=== PATIENT | female | born 1940 | race Caucasian/White ===

== ENCOUNTER 2016-12-05 11:50 | Outpatient (CLI) ==
[2016-09-10 17:51] VITALS: BMI 34.1
[2016-12-05] MEDS ORDERED: PROCRIT SUBCUT STA (12:29)
[2016-12-05 12:42] VITALS: BP 122/40; TEMP 98.1
[2016-12-05 12:50] LABS: BASOPHILS % (AUTO) 0.9 % (0.0-3.0); EOSINOPHILS # (AUTO) 0.2 K/ul (0.0-0.7); EOSINOPHILS % (AUTO) 3.7 % (0.0-7.0); IMMATURE GRANULOCYTE % (AUTO) 0.2 % (0.0-5.0); LYMPHOCYTES # (AUTO) 0.6 K/uL (0.60-3.4); LYMPHOCYTES % (AUTO) 12.9 (10.0-50.0); MEAN CORPUSCULAR HEMOGLOBIN 26.2 pg (27.0-31.0); MEAN CORPUSCULAR VOLUME 93.6 fl (81.0-99.0); MONOCYTES # (AUTO) 0.4 K/uL (0.4-2.0); MONOCYTES % (AUTO) 8.6 (0-10); NEUTROPHILS # (AUTO) 3.2 K/ul (2.0-6.9); NEUTROPHILS % (AUTO) 73.7; PLATELET COUNT 290 10^3/uL (140-440); RED BLOOD COUNT 2.02 10^6/ul (4.20-5.40); WHITE BLOOD COUNT 4.28 K/ul (4.6-10.2)
[2016-12-05 13:18] LABS: HEMATOCRIT 18.9 % (37.0-47.0); HEMOGLOBIN 5.2 g/dl (12.0-16.0)
== END 2016-12-05 11:51 | disposition home or self-care (01) ==
LOC: LAB 11:50 → OPMED 11:51
PROVIDERS: ATTEND Internal Medicine Hematology & Oncology
DX: N18.3 Chronic kidney disease, stage 3 (moderate) (principal); D63.1 Anemia in chronic kidney disease
CPT/HCPCS: 36415; 85025; 96372

== ENCOUNTER 2016-12-12 10:17 | Outpatient (CLI) ==
[2013-05-06 16:59] VITALS: TEMP 97.8
[2016-09-10 17:51] VITALS: BMI 34.1
[2016-12-12 10:36] LABS: BASOPHILS % (AUTO) 0.8 % (0.0-3.0); EOSINOPHILS # (AUTO) 0.2 K/ul (0.0-0.7); EOSINOPHILS % (AUTO) 4.2 % (0.0-7.0); HEMATOCRIT 21.4 % (37.0-47.0); IMMATURE GRANULOCYTE % (AUTO) 0.4 % (0.0-5.0); LYMPHOCYTES # (AUTO) 0.6 K/uL (0.60-3.4); LYMPHOCYTES % (AUTO) 13.2 (10.0-50.0); MEAN CORPUSCULAR HEMOGLOBIN 26.2 pg (27.0-31.0); MEAN CORPUSCULAR VOLUME 93.4 fl (81.0-99.0); MONOCYTES # (AUTO) 0.4 K/uL (0.4-2.0); MONOCYTES % (AUTO) 8.4 (0-10); NEUTROPHILS # (AUTO) 3.5 K/ul (2.0-6.9); PLATELET COUNT 232 10^3/uL (140-440); RED BLOOD COUNT 2.29 10^6/ul (4.20-5.40); WHITE BLOOD COUNT 4.76 K/ul (4.6-10.2)
[2016-12-12] MEDS ORDERED: PROCRIT SUBCUT STA (10:37)
== END 2016-12-12 10:18 | disposition home or self-care (01) ==
LOC: OUTPT 10:17
PROVIDERS: ATTEND Internal Medicine Hematology & Oncology
DX: N18.3 Chronic kidney disease, stage 3 (moderate) (principal); D63.1 Anemia in chronic kidney disease
CPT/HCPCS: 36415; 85025; 96372

== ENCOUNTER 2016-12-19 10:20 | Emergency (ER) ==
[2016-12-19 10:20] VITALS: BMI 34.1
[2016-12-19 10:27] VITALS: BP 175/91; TEMP 96.4
[2016-12-19 10:54] LABS: BASOPHILS % (AUTO) 0.7 % (0.0-3.0); EOSINOPHILS # (AUTO) 0.1 K/ul (0.0-0.7); EOSINOPHILS % (AUTO) 3.1 % (0.0-7.0); HEMATOCRIT 25.4 % (37.0-47.0); HEMOGLOBIN 7.3 g/dl (12.0-16.0); IMMATURE GRANULOCYTE % (AUTO) 0.4 % (0.0-5.0); LYMPHOCYTES # (AUTO) 0.5 K/uL (0.60-3.4); LYMPHOCYTES % (AUTO) 10.7 (10.0-50.0); MEAN CORPUSCULAR HEMOGLOBIN 25.3 pg (27.0-31.0); MEAN CORPUSCULAR HGB CONC 28.7 (31.8-35.4); MEAN CORPUSCULAR VOLUME 88.2 fl (81.0-99.0); MONOCYTES # (AUTO) 0.4 K/uL (0.4-2.0); MONOCYTES % (AUTO) 8.1 (0-10); NEUTROPHILS # (AUTO) 3.5 K/ul (2.0-6.9); PLATELET COUNT 247 10^3/uL (140-440); RED BLOOD COUNT 2.88 10^6/ul (4.20-5.40); WHITE BLOOD COUNT 4.59 K/ul (4.6-10.2)
[2016-12-19 11:04] LABS: OCCULT BLOOD INTERNAL QC 1 INTERNAL QC VALID; OCCULT BLOOD SAMPLE 1 NEGATIVE (NEGATIVE)
[2016-12-19 11:05] LABS: PARTIAL THROMBOPLASTIN TIME 21.7 SEC (23.9-40.0); PROTHROMBIN TIME 12.4 SEC (9.3-11.0)
[2016-12-19 11:08] LABS: ANISOCYTOSIS NOT PRESENT (NOT PRESENT); HYPOCHROMASIA 1+ (NOT PRESENT)
[2016-12-19 11:16] LABS: ALBUMIN 3.4 g/dL (3.4-5.0); ALBUMIN/GLOBULIN RATIO 1.17; ANION GAP 13.8; BILIRUBIN,TOTAL 0.43 mg/dL (0.00-1.20); BUN/CREATININE RATIO 20.56; CALCIUM 8.9 mg/dL (8.2-10.2); CREATININE 1.41 mg/dL (0.60-1.30); POTASSIUM 4.8 mmol/L (3.5-5.10); TOTAL PROTEIN 6.3 g/dL (5.8-8.1); TROPONIN I 0.029 ng/ml (0.0000-0.4000)
--- NOTE | 2016-12-19 12:47 | CT ---
EXAM: CT abdomen pelvis without contrast HISTORY: Abdominal pain and vaginal bleeding with bloating. Patient with history of partial hyster ectomy and prior cholecystectomy. COMPARISON: CT abdomen pelvis 09/14/2016 and 07/23/2013. Chest x-ray 11/30/2014. TECHNIQUE: Serial axial images of the abdomen pelvis were performed from the lung bases through the inferior pelvis without contrast. These were viewed in multiple planes. FINDINGS: Small pleural effusions are present with minimal atelectasis. The liver is unremarkable in appearance. The gallbladder has been resected. The adrenal glands are normal. The kidneys are normal. There is no hydronephrosis or visualized stone. The spleen is un remarkable. The pancreas is unremarkable. The stomach is normal. Small bowel in the abdomen and pelvis is normal in appearance. The colon is nondistended with mild diverticulosis of the sigmoid colon. The appendix is normal without evidence of inflammation or inf ection. The urinary bladder is distended. Changes consistent with hysterectomy are present. There is no free air, free fluid or lymphadenopathy noted in the abdomen or pelvis. The osseous structur es demonstrate chronic healed anterior right rib fractures. The lumbar spine unchanged with signifi cant degenerative lumbosacral junction and 0.7 cm of anterolisthesis of L4 on L5 which is unchanged by measurements on prior exam. The broad-based disc bulge contributing to bilateral moderate to sev ere interval narrowing at this level is also stable. There is fusion of T11 and T10 vertebral rich s. IMPRESSION: 1. Acute intra-abdominal or pelvic process for patient's symptoms. 2. Small bilateral pleural effusions are present with atelectasis. 3. Diverticulosis without diverticulitis. 4. Stable multilevel degenerative disease with stable anterolisthesis of L4 on L5.
--- NOTE | 2016-12-19 13:51 | ED.PDOC ---
General ED Provider: Dr. MANDI HARDY Chief Complaint: Vaginal Bleeding Stated Complaint: vaginal bleeding Time Seen by Physician: 10:30 Mode of Arrival: Wheelchair Information Source: Patient Exam Limitations: No limitations Primary Care Provider: JOYCE MAYO Nursing and Triage Documentation Reviewed and Agree: Yes Complaint Exam - Complaint/Exam Onset/Duration: this morning noticed some blood in bathroom no bowel issues offered Symptoms Are: Resolved Timing: Intermittent Initial Severity: Mild Current Severity: None Location of Pain: Reports: Suprapubic Character: Reports: Dull Aggravating: Reports: Urination Alleviating: Reports: None Associated Signs and Symptoms: Reports: Increased urine frequency, Vaginal bleeding Related History: Reports: Similar episode Ectopic Risk Factors: Reports: None Ovarian Torsion Risk Factors: Reports: None Surgical Obstruction Risk Factors: Reports: None RH Status: Unknown Related Surgical History: Reports: None Abdominal Findings: Present: None Review of Systems - Review Of Systems Constitutional: Reports: Weakness Eyes: Reports: No symptoms Ears, Nose, Mouth, Throat: Reports: No symptoms Respiratory: Reports: No symptoms Cardiac: Reports: No symptoms GI: Reports: No symptoms : Reports: No symptoms Musculoskeletal: Reports: No symptoms Skin: Reports: No symptoms Neurological: Reports: No symptoms Endocrine: Reports: No symptoms Hematologic/Lymphatic: Reports: No symptoms All Other Systems: Reviewed and Negative Past Medical History - Past Medical History Endocrine: Reports: DM 1, Hypothyroid, Dyslipidemia Cardiovascular: Reports: Hypertension, CHF Respiratory: Reports: None Hematological: Reports: Anemia (chronic ) Gastrointestinal: Reports: GERD Genitourinary: Reports: CKD Neuro/Psych: Reports: TIA, Depression Musculoskeletal: Reports: Arthritis Cancer: Reports: None Last Menstrual Period: NONE Other Pertinent Past Medical History: firbromyalgiA - Surgical History General Surgical History: Reports: Hysterectomy (PARTIAL), Cholecystectomy, Orthopedic (BILAT KNEE REPLACEMENT, CARPAL TUNNEL, ), Other (CATARACT,) - Family History Family History: Reports: Unknown - Social History Smoking Status: Former smoker Hx Substance Use: No Alcohol Screening: None Physical Exam - Physical Exam Appearance: Well-appearing, No pain distress, Well-nourished Eyes: EMILY, EOMI, Conjunctiva clear ENT: Ears normal, Nose normal, Oropharynx normal Respiratory: Airway patent, Breath sounds clear, Breath sounds equal, Respirations nonlabored Cardiovascular: RRR, Pulses normal, No rub, No murmur GI/: Soft, Nontender, No masses (with lilly in the room pelvic exam was negative for any blood also rectal exam with nurse at [facility] was negative ), Bowel sounds normal, No Organomegaly Musculoskeletal: Normal strength, ROM intact, No edema, No calf tenderness Skin: Warm, Dry, Normal color Neurological: Sensation intact, Motor intact, Reflexes intact, Cranial nerves intact, Alert, Oriented Psychiatric: Affect appropriate, Mood appropriate Physician Notification - Case Discussed Physician Notified: pmd Time of Notification: 13:54 (labs entirely discussed PMD would like pt to see her oncologist for follow up) Critical Care Note - Critical Care Note Total Time (mins): 0 Course - Course Hematology/Chemistry: 12/19/16 10:40 12/19/16 10:40 Orders, Labs, Meds: Lab Review 12/19/16 10:40 WBC 4.59 L RBC 2.88 L Hgb 7.3 L Hct 25.4 L MCV 88.2 MCH 25.3 L MCHC 28.7 L RDW Coeff of Irvin 18.6 H Plt Count 247 Immature Gran % (Auto) 0.4 Neut % (Auto) 77.0 Lymph % (Auto) 10.7 [place] % (Auto) 8.1 Eos % (Auto) 3.1 Baso % (Auto) 0.7 Immature Gran # (Auto) 0.0 Neut # 3.5 Lymph # 0.5 L [place] # 0.4 Eos # 0.1 Baso # 0.0 PT 12.4 H INR 1.20 APTT 21.7 L Sodium 142 Potassium 4.8 Chloride 105 Carbon Dioxide 28 Anion Gap 13.8 BUN 29 H Creatinine 1.41 H Estimated GFR (MDRD) 36.00 BUN/Creatinine Ratio 20.56 Glucose 191 H Calcium 8.9 Total Bilirubin 0.43 AST 29 ALT 19 Alkaline Phosphatase 48 L Total Creatine Kinase 70 Troponin I 0.0290 Total Protein 6.3 Albumin 3.4 Globulin 2.9 Albumin/Globulin Ratio 1.17 Stl Occult Blood (IFOB) Negative Stool Occult Blood #2 Pending Stool Occult Blood #3 Pending Orders Category Date Time Status EKG-(ED ONLY) Stat CARDIO 12/19/16 10:35 Completed CBC W/ AUTO DIFF Stat LAB 12/19/16 10:40 Completed COMPREHENSIVE METABOLIC PANEL Stat LAB 12/19/16 10:40 Completed CREATINE KINASE Stat LAB 12/19/16 10:40 Completed OCCULT BLOOD, STOOL Stat LAB 12/19/16 10:40 Results PARTIAL THROMBOPLASTIN TIME Stat LAB 12/19/16 10:40 Completed PT WITH INR Stat LAB 12/19/16 10:40 Completed RBC MORPHOLOGY Stat LAB 12/19/16 10:40 Completed TROPONIN I Stat LAB 12/19/16 10:[address] ABDOMEN/PELVIS WO CONTRAST Stat RADS 12/19/16 12:05 Completed Vital Signs: Temp Pulse Resp BP Pulse Ox 12/19/16 10:21 96.4 F L 83 20 175/91 H 90 L Departure - Departure Time of Disposition: 13:54 Disposition: HOME SELF-CARE Discharge Problem: Anemia Qualifiers: Iron deficiency anemia type: unspecified iron deficiency Instructions: Anemia (ED) Condition: Good Pt referred to PMD for follow-up: No Additional Instructions: Please call your Family Physician as soon as possible to schedule a follow-up appointment. Allergies/Adverse Reactions: Allergies Sulfa (Sulfonamide Antibiotics) Adverse Reaction (Intermediate, Verified 10:27) Vomiting Home Medications: Ambulatory Orders Aspirin [Aspirin Chewable] 81 mg PO DAILY 05/06/13 Clotrimazole/Betamethasone Dip [Lotrisone 15 gm] 1 applic TP DAILY 05/06/13 Fexofenadine HCl [Cindy] 180 mg PO BID 05/06/13 Hydrocortisone 28.35 gm TP 1-2XD 05/06/13 Levothyroxine Sodium [Synthroid] 0.1 mg PO DAILY 05/06/13 Tramadol HCl [Ultram] 50 mg PO QID 05/06/13 Zolpidem Tartrate [Ambien] 5 mg PO BEDTIME 05/06/13 Tizanidine HCl [Zanaflex] 4 mg PO BID 08/27/13 Omeprazole [Prilosec] 20 mg PO BID 10/16/13 Bupropion HCl [Wellbutrin Xl] 150 mg PO DAILY 08/22/14 Lisinopril 20 mg PO DAILY 08/22/14 NPH, Human Insulin Isophane [Novolin N Insulin] 27 unit SUBCUT BID 06/20/16 Amlodipine Besylate [Norvasc] 5 mg PO BID 09/11/16 Cephalexin [Keflex] 500 mg PO QID 09/11/16 Fenofibrate Nanocrystallized [Fenofibrate] 145 mg PO DAILY 09/11/16 Furosemide [Lasix] 40 mg PO DAILY 09/11/16 Multivit-Min/FA/Lycopene/Lut [Centrum Silver Tablet] 1 each PO DAILY 09/11/16 Pravastatin Sodium [Pravachol] 40 mg PO BEDTIME 09/11/16 Disposition Discussed With: Patient
[2016-12-19 16:21] LABS: OCCULT BLOOD INTERNAL QC 2 INTERNAL QC VALID; OCCULT BLOOD INTERNAL QC 3 INTERNAL QC VALID; OCCULT BLOOD SAMPLE 2 NO SPECIMEN RECEIVED (NEGATIVE); OCCULT BLOOD SAMPLE 3 NO SPECIMEN RECEIVED (NEGATIVE)
== END 2016-12-19 14:00 | disposition home or self-care (01) ==
LOC: ED 10:20
DX: D50.9 Iron deficiency anemia, unspecified (principal); R35.0 Frequency of micturition; E10.9 Type 1 diabetes mellitus without complications; E03.9 Hypothyroidism, unspecified; E78.5 Hyperlipidemia, unspecified; I10 Essential (primary) hypertension; N18.9 Chronic kidney disease, unspecified; K21.9 Gastro-esophageal reflux disease without esophagitis; M79.7 Fibromyalgia; Z86.73 Personal history of transient ischemic attack (TIA), and cerebral infarction without residual deficits; Z79.899 Other long term (current) drug therapy
CPT/HCPCS: 36415; 80053; 82272; 82550; 84484; 85008; 85025; 85610; 85730; 93005; 93010; 99283

== ENCOUNTER 2016-12-20 10:08 | Outpatient (CLI) ==
[2016-09-10 17:51] VITALS: BMI 34.1
[2016-12-20 10:43] VITALS: BP 124/76; TEMP 97.8
[2016-12-20] MEDS ORDERED: PROCRIT SUBCUT STA (10:44)
== END 2016-12-20 10:09 | disposition home or self-care (01) ==
LOC: OPMED 10:08
PROVIDERS: ATTEND Internal Medicine Hematology & Oncology
DX: N18.3 Chronic kidney disease, stage 3 (moderate) (principal); D63.1 Anemia in chronic kidney disease
CPT/HCPCS: J0885; 96372

== ENCOUNTER 2016-12-29 10:51 | Outpatient (CLI) ==
[2016-12-29 11:16] LABS: BASOPHILS % (AUTO) 0.7 % (0.0-3.0); EOSINOPHILS # (AUTO) 0.1 K/ul (0.0-0.7); EOSINOPHILS % (AUTO) 1.3 % (0.0-7.0); IMMATURE GRANULOCYTE % (AUTO) 0.5 % (0.0-5.0); LYMPHOCYTES # (AUTO) 0.7 K/uL (0.60-3.4); LYMPHOCYTES % (AUTO) 11.8 (10.0-50.0); MEAN CORPUSCULAR HEMOGLOBIN 23.8 pg (27.0-31.0); MEAN CORPUSCULAR HGB CONC 27.7 (31.8-35.4); MEAN CORPUSCULAR VOLUME 86.2 fl (81.0-99.0); MONOCYTES # (AUTO) 0.5 K/uL (0.4-2.0); MONOCYTES % (AUTO) 9.1 (0-10); NEUTROPHILS # (AUTO) 4.3 K/ul (2.0-6.9); NEUTROPHILS % (AUTO) 76.6; PLATELET COUNT 351 10^3/uL (140-440); RED BLOOD COUNT 2.39 10^6/ul (4.20-5.40); WHITE BLOOD COUNT 5.59 K/ul (4.6-10.2)
[2016-12-29 11:31] LABS: HEMOGLOBIN 5.7 g/dl (12.0-16.0)
[2016-12-29 11:32] LABS: HEMATOCRIT 20.6 % (37.0-47.0)
[2016-12-29 11:35] LABS: ANISOCYTOSIS NOT PRESENT (NOT PRESENT)
[2016-12-29 11:47] VITALS: BP 130/52; TEMP 99
[2016-12-29 11:47] LABS: HYPOCHROMASIA 2+ (NOT PRESENT)
[2016-12-29] MEDS ORDERED: PROCRIT SUBCUT STA (11:47)
== END 2016-12-29 10:52 | disposition home or self-care (01) ==
LOC: LAB 10:51 → OUTPT 10:52
PROVIDERS: ATTEND Internal Medicine Hematology & Oncology
DX: N18.3 Chronic kidney disease, stage 3 (moderate) (principal); D63.1 Anemia in chronic kidney disease
CPT/HCPCS: 36415; 85008; 85025; 96372; 99211

== ENCOUNTER 2017-01-01 08:06 | Outpatient (CLI) ==
[2013-05-06 16:59] VITALS: TEMP 97.8
[2017-01-01 08:28] VITALS: BMI 34.9
== END 2017-01-01 08:07 ==
LOC: AMBL 08:06
PROVIDERS: ATTEND Emergency Medicine
DX: R42 Dizziness and giddiness (principal); R53.1 Weakness; K92.2 Gastrointestinal hemorrhage, unspecified; D64.9 Anemia, unspecified; J44.9 Chronic obstructive pulmonary disease, unspecified; Z99.81 Dependence on supplemental oxygen

== ENCOUNTER 2017-01-01 08:19 | Emergency (ER) ==
[2017-01-01 08:28] VITALS: TEMP 97; BMI 34.9
--- NOTE | 2017-01-01 08:54 | ED.PDOC ---
General ED Provider: Dr. BRIANNE GIBSON JR Chief Complaint: Dizziness Stated Complaint: typically has dizziness due to anemia but much worse this morning. [ End ]faint weak vertigo Time Seen by Physician: 08:53 Mode of Arrival: Ambulance Information Source: Patient Exam Limitations: No limitations Primary Care Provider: JOYCE MAYO Nursing and Triage Documentation Reviewed and Agree: No Review of Systems - Review Of Systems Constitutional: Reports: Malaise, Weakness Eyes: Reports: No symptoms Ears, Nose, Mouth, Throat: Reports: No symptoms Respiratory: Reports: No symptoms Cardiac: Reports: No symptoms GI: Reports: Abdominal pain : Reports: No symptoms Musculoskeletal: Reports: No symptoms Skin: Reports: No symptoms Neurological: Reports: Weakness, Other (VERTIGO) Endocrine: Reports: No symptoms Hematologic/Lymphatic: Reports: No symptoms All Other Systems: Other Past Medical History - Past Medical History Endocrine: Reports: DM 1, Hypothyroid, Dyslipidemia Cardiovascular: Reports: Hypertension, CHF Respiratory: Reports: COPD Hematological: Reports: Anemia (chronic;HAS HAD 5 BLOOD TRANSFUSIONS (10 UNITS ) OVER THE PAST 2 MONTHS ) Gastrointestinal: Reports: GERD, GI Bleed (BLEEDING FROM SMALL INTESTINE) Genitourinary: Reports: CKD Neuro/Psych: Reports: TIA, Depression Musculoskeletal: Reports: Arthritis Cancer: Reports: None Last Menstrual Period: PARTIAL HYSTERECTOMY Other Pertinent Past Medical History: firbromyalgia - Surgical History General Surgical History: Reports: Hysterectomy (PARTIAL), Cholecystectomy, Orthopedic (BILAT KNEE REPLACEMENT, CARPAL TUNNEL, ), Other (CATARACT). Denies : CABG (AORTIC VALVE RELPLACEMENT 2005) - Family History Family History: Reports: Unknown - Social History Smoking Status: Former smoker Hx Substance Use: No Alcohol Screening: None Physical Exam - Physical Exam Appearance: Well-appearing Pain Distress: Moderate Eyes: EMILY, EOMI, Conjunctiva clear ENT: Ears normal, Nose normal, Oropharynx normal Neck: Supple Respiratory: Airway patent, Breath sounds clear, Breath sounds equal, Respirations nonlabored Cardiovascular: RRR, Tachycardia GI/: Soft, Nontender, No masses, Bowel sounds normal, No Organomegaly Musculoskeletal: Normal strength, ROM intact, No edema, No calf tenderness Skin: Warm, Dry, Normal color Neurological: Sensation intact, Motor intact, Reflexes intact, Cranial nerves intact, Alert, Oriented Psychiatric: Affect appropriate, Mood appropriate Critical Care Note - Critical Care Note Total Time (mins): 0 Course - Course Hematology/Chemistry: 01/01/17 09:20 01/01/17 09:20 Orders, Labs, Meds: Lab Review 01/01/17 09:20 WBC 4.24 L RBC 3.02 L Hgb 7.4 L Hct 25.9 L MCV 85.8 MCH 24.5 L MCHC 28.6 L RDW Coeff of Irvin 18.0 H Plt Count 256 Immature Gran % (Auto) 0.7 Neut % (Auto) 76.5 Lymph % (Auto) 10.1 [place] % (Auto) 9.9 Eos % (Auto) 1.9 Baso % (Auto) 0.9 Immature Gran # (Auto) 0.0 Neut # 3.2 Lymph # 0.4 L [place] # 0.4 Eos # 0.1 Baso # 0.0 Sodium 142 Potassium 4.7 Chloride 103 Carbon Dioxide 30 Anion Gap 13.7 BUN 40 H Creatinine 1.59 H Estimated GFR (MDRD) 31.00 BUN/Creatinine Ratio 25.15 Glucose 129 H Calcium 8.9 Total Bilirubin 0.60 AST 51 H ALT 39 Alkaline Phosphatase 33 L Total Protein 6.1 Albumin 3.4 Globulin 2.7 Albumin/Globulin Ratio 1.26 TSH 4.036 Orders Category Date Time Status Orthostatic [ED ORTHOSTATIC VITAL SIGNS] .ONCE EMERGENCY 01/01/17 09:54 Active CBC W/ AUTO DIFF Stat LAB 01/01/17 09:20 Completed CMP [COMPREHENSIVE METABOLIC PANEL] Stat LAB 01/01/17 09:20 Completed THYROID STIMULATING HORMONE Stat LAB 01/01/17 09:20 Completed Meclizine HCl [Antivert] MEDS 01/01/17 10:27 Discontinued 25 mg PO ONCE STA Medications Discontinued Medications Generic Name Dose Route Start Last Admin Trade Name Freq PRN Reason Stop Dose Admin Meclizine HCl 25 mg 01/01/17 10:27 01/01/17 10:38 Antivert PO 01/01/17 10:28 25 mg ONCE STA Administration Vital Signs: Temp Pulse Resp BP Pulse Ox 01/01/17 10:28 84 163/92 H 01/01/17 10:27 86 159/67 H 01/01/17 10:26 82 164/59 H 01/01/17 08:24 97 F L 83 22 179/91 H 93 L MARLEE Risk Score MARLEE Risk Score: Risk Score Odds of by 30D 0 0.1 (0.1-0.2) 1 0.3 (0.2-0.3) 2 0.4 (0.3-0.5) 3 0.7 (0.6-0.9) 4 1.2 (1.0-1.5) 5 2.2 (1.9-2.6) 6 3.0 (2.5-3.6) 7 4.8 (3.8-6.1) Departure - Departure Time of Disposition: 11:06 Disposition: HOME SELF-CARE Discharge Problem: Dizziness Anemia Qualifiers: Iron deficiency anemia type: chronic blood loss Instructions: Vertigo (ED), Iron Deficiency Anemia (ED) Condition: Good Pt referred to PMD for follow-up: Yes Additional Instructions: Please follow-up with Dr. Mayo in 1-2 days. FOLLOW UP WITH PMD IN MORNING BE EXTREMELY CAUTIOUS ABOUT FALLS; WHEN DIZZY MORE LIKELY TO FALL BLOOD COUNTS ARE LOW BUT MUCH IMPROVED MAY BE A CANDIDATE FOR TRANSFUSION ASK PMD ABOUT REFERRAL MAY USE ANTIVERT FOR DIZZINESS CAN CAUSE DROWSINESS Prescriptions: Meclizine HCl [Antivert] 25 mg PO TID PRN #12 tablet PRN Reason: Dizziness Allergies/Adverse Reactions: Allergies Sulfa (Sulfonamide Antibiotics) Adverse Reaction (Intermediate, Verified 08:41) Vomiting Home Medications: Ambulatory Orders Aspirin [Aspirin Chewable] 81 mg PO DAILY 05/06/13 Fexofenadine HCl [Cindy] 180 mg PO BID 05/06/13 Hydrocortisone 28.35 gm TP 1-2XD 05/06/13 Levothyroxine Sodium [Synthroid] 0.1 mg PO DAILY 05/06/13 Tramadol HCl [Ultram] 50 mg PO QID 05/06/13 Zolpidem Tartrate [Ambien] 5 mg PO BEDTIME 05/06/13 Tizanidine HCl [Zanaflex] 4 mg PO BID 08/27/13 Omeprazole [Prilosec] 20 mg PO BID 10/16/13 Bupropion HCl [Wellbutrin Xl] 150 mg PO DAILY 08/22/14 Lisinopril 20 mg PO DAILY 08/22/14 NPH, Human Insulin Isophane [Novolin N Insulin] 27 unit SUBCUT BID 06/20/16 Amlodipine Besylate [Norvasc] 5 mg PO BID 09/11/16 Fenofibrate Nanocrystallized [Fenofibrate] 145 mg PO DAILY 09/11/16 Furosemide [Lasix] 40 mg PO DAILY 09/11/16 Multivit-Min/FA/Lycopene/Lut [Centrum Silver Tablet] 1 each PO DAILY 09/11/16 Pravastatin Sodium [Pravachol] 40 mg PO BEDTIME 09/11/16 Meclizine HCl [Antivert] 25 mg PO TID PRN #12 tablet 01/01/17
[2017-01-01 09:29] LABS: BASOPHILS % (AUTO) 0.9 % (0.0-3.0); EOSINOPHILS # (AUTO) 0.1 K/ul (0.0-0.7); EOSINOPHILS % (AUTO) 1.9 % (0.0-7.0); HEMATOCRIT 25.9 % (37.0-47.0); HEMOGLOBIN 7.4 g/dl (12.0-16.0); IMMATURE GRANULOCYTE % (AUTO) 0.7 % (0.0-5.0); LYMPHOCYTES # (AUTO) 0.4 K/uL (0.60-3.4); LYMPHOCYTES % (AUTO) 10.1 (10.0-50.0); MEAN CORPUSCULAR HEMOGLOBIN 24.5 pg (27.0-31.0); MEAN CORPUSCULAR HGB CONC 28.6 (31.8-35.4); MEAN CORPUSCULAR VOLUME 85.8 fl (81.0-99.0); MONOCYTES # (AUTO) 0.4 K/uL (0.4-2.0); MONOCYTES % (AUTO) 9.9 (0-10); NEUTROPHILS # (AUTO) 3.2 K/ul (2.0-6.9); NEUTROPHILS % (AUTO) 76.5; PLATELET COUNT 256 10^3/uL (140-440); RED BLOOD COUNT 3.02 10^6/ul (4.20-5.40); WHITE BLOOD COUNT 4.24 K/ul (4.6-10.2)
[2017-01-01] MEDS ORDERED: ANTIVERT PO STA (10:27)
[2017-01-01 10:33] VITALS: BP 163/92
[2017-01-01 10:36] LABS: ALBUMIN 3.4 g/dL (3.4-5.0); ALBUMIN/GLOBULIN RATIO 1.26; ANION GAP 13.7; BILIRUBIN,TOTAL 0.6 mg/dL (0.00-1.20); BUN/CREATININE RATIO 25.15; CALCIUM 8.9 mg/dL (8.2-10.2); CREATININE 1.59 mg/dL (0.60-1.30); POTASSIUM 4.7 mmol/L (3.5-5.10); TOTAL PROTEIN 6.1 g/dL (5.8-8.1)
== END 2017-01-01 11:36 | disposition home or self-care (01) ==
LOC: ED 08:19
DX: R42 Dizziness and giddiness (principal); D50.0 Iron deficiency anemia secondary to blood loss (chronic); E78.5 Hyperlipidemia, unspecified; E03.9 Hypothyroidism, unspecified; E10.9 Type 1 diabetes mellitus without complications; I10 Essential (primary) hypertension; Z79.899 Other long term (current) drug therapy
CPT/HCPCS: 36415; 80053; 84443; 85025; 99283

== ENCOUNTER 2017-01-09 10:30 | Outpatient (CLI) ==
[2013-05-06 16:59] VITALS: TEMP 97.8
[2017-01-09 10:41] LABS: BASOPHILS % (AUTO) 0.2 % (0.0-3.0); EOSINOPHILS % (AUTO) 0.1 % (0.0-7.0); LYMPHOCYTES # (AUTO) 0.5 K/uL (0.60-3.4); LYMPHOCYTES % (AUTO) 3.8 (10.0-50.0); MEAN CORPUSCULAR HEMOGLOBIN 24.2 pg (27.0-31.0); MEAN CORPUSCULAR HGB CONC 27.2 (31.8-35.4); MONOCYTES % (AUTO) 8.2 (0-10); NEUTROPHILS # (AUTO) 10.5 K/ul (2.0-6.9); NEUTROPHILS % (AUTO) 86.7; PLATELET COUNT 247 10^3/uL (140-440); RED BLOOD COUNT 2.19 10^6/ul (4.20-5.40); WHITE BLOOD COUNT 12.13 K/ul (4.6-10.2)
[2017-01-09 10:54] LABS: HEMATOCRIT 19.5 % (37.0-47.0); HEMOGLOBIN 5.3 g/dl (12.0-16.0)
[2017-01-09] MEDS ORDERED: PROCRIT SUBCUT STA (11:02)
== END 2017-01-09 10:31 | disposition home or self-care (01) ==
LOC: OPMED 10:30 → OUTPT 10:31
PROVIDERS: ATTEND Internal Medicine Hematology & Oncology
DX: N18.3 Chronic kidney disease, stage 3 (moderate) (principal); D63.1 Anemia in chronic kidney disease
CPT/HCPCS: 36415; 85025; 96372